=== PATIENT | female | born 1965 | race Caucasian/White ===

== ENCOUNTER 2018-10-26 09:17 | Outpatient (CLI) | payer OTHER | END 2018-10-26 09:18 | disposition home or self-care (01) | LOC: C.MAMMO 09:17 | DX: R92.2 Inconclusive mammogram (principal) ==

== ENCOUNTER 2018-11-01 09:27 | Emergency (ER) | payer OTHER ==
[2018-11-01 09:28] VITALS: BMI 25.7
[2018-11-01 09:34] VITALS: TEMP 97.9
--- NOTE | 2018-11-01 09:34 | C.PDOC ---
History Of Present Illness Melani Nelson is a 53 year old female w/ hx of Anxiety, HTN, Hypercholesterolemia, Hyperlipidemia who p/w hand pain and b/l knee pain s/p mechanical fall. She notes falling onto her R hand while walking to get to school today. She notes that she tripped on the curb at 0800 impacting her R hand. She notes FOOSH but denies any wrist pain, head impact, head pain, chest pain, abdominal pain, shoulder pain, or hip pain. She notes b/l knee pain after impacting her knees as well. No LOC or blood thinners usage. No nausea or vomiting. No GI or complaints or rashes. She denies any SI or HI, no anxiety or depression No other complaints Time Seen by Provider: 11/01/18 09:33 Chief Complaint (Nursing): Finger,Hand,&Wrist Past Medical History Vital Signs: Last Vital Signs Temp 97.9 F 11/01/18 09:28 Pulse 86 11/01/18 09:28 Resp 20 11/01/18 09:28 BP 167/96 H 11/01/18 09:28 Pulse Ox 99 11/01/18 09:28 - Medical History PMH: Anxiety, HTN, Hypercholesterolemia, Hyperlipidemia Denies: Colonic Polyps, Fractures, TIA Surgical History: Denies: Endoscopy Family History: States: Unknown Family Hx - Social History Hx Alcohol Use: No Hx Substance Use: No Review Of Systems Constitutional: Negative for: Fever, Weakness Eyes: Negative for: Pain, Vision Change ENT: Negative for: Ear Pain, Ear Discharge, Nose Pain, Nose Discharge, Nose Congestion, Mouth Pain, Mouth Swelling Cardiovascular: Negative for: Chest Pain, Palpitations, Orthopnea, Edema Respiratory: Negative for: Cough, Shortness of Breath Gastrointestinal: Negative for: Nausea, Vomiting, Abdominal Pain, Constipation Genitourinary: Negative for: Dysuria, Frequency Musculoskeletal: Positive for: Hand Pain (R), Leg Pain (b/l knees). Negative for: Neck Pain, Shoulder Pain, Back Pain Skin: Positive for: Bruising (over anterior b/l knees). Negative for: Rash, Lesions Neurological: Negative for: Weakness, Numbness, Incoordination, Confusion, Headache, Dizziness Psych: Negative for: Anxiety, Depression, Psychosis, Suicidal ideation, Withdrawal Physical Exam - Physical Exam Appears: Well, No Acute Distress Skin: Normal Color, Warm, Dry, Ecchymosis (to b/l knees anterior. ), Other (superficial abrasion to L knee, good hemostasis, no visible bone or tendon. Scabbed over without bleeding) Head: Atraumatic, Normacephalic, No Tenderness, No Swelling, No Abrasion, No Laceration Eye(s): bilateral: Normal Inspection, PERRL, EOMI Ear(s): Bilateral: Normal Nose: Normal Oral Mucosa: Moist Tongue: Normal Appearing Lips: Normal Appearing Teeth: Normal Dentition Gingiva: Normal Appearing Throat: Normal Neck: Normal Chest: Symmetrical Cardiovascular: Rhythm Regular, No Edema, No JVD Respiratory: Normal Breath Sounds, No Decreased Breath Sounds, No Accessory Muscle Use, No Rales, No Stridor, No Wheezing Gastrointestinal/Abdominal: Normal Exam Back: Normal Inspection Extremity: Normal ROM, Tenderness (R knee and L knee TTP over contusion and superficial abrasion site. ), No Pedal Edema, No Calf Tenderness, No Deformity, No Swelling, Other (negative thompsons test b/l. b/l LE and UE fully n/v intact. No snuffbox tenderness to b/l hands. ) Extremity: Bilateral: Hips Non-Tender, No Pedal Edema, Normal Color And Temperature, Normal ROM, Pelvis-Stable Pulses: Left Radial: Normal, Right Radial: Normal, Left Dorsalis Pedis: Normal, Right Dorsalis Pedis: Normal Neurological/Psych: Oriented x3, Normal Speech, Normal Cognition, Normal Cranial Nerves, No Cerebellar Signs, Normal Motor, Normal Sensation Gait: Steady Extremity: Right: No Drift, Left: No Drift ED Course And Treatment O2 Sat by Pulse Oximetry: 99 Medical Decision Making Medical Decision Making: Melani Nelson is a 53 year old female w/ hx of Anxiety, HTN, Hypercholesterolemia, Hyperlipidemia who p/w hand pain and b/l knee pain s/p mechanical fall. Fall w/ FOOSH of R hand, no wrist pain, fully n/v intact distally and proximally and without snuffbox tenderness or kanavel signs. Good strength. No finger abnls noted on exam. No finger pain. b/l knee pain s/p fall w/ superficial abrasion to L knee, no current bleed or erythema or decreased rom to knees. Good n/v status distally with good strength and normal gait. Pt does not know her last tetanus booster. No other pain or impact sites per pt, no blood thinners, headache, LOC or any other complaints. Normal neuro exam. Likely msk type pain. Pending imaging and labs. 1056 xrays unremarkable, no visible fx or abnl remains w/ out snuff box tenderness and remains n/v intact given wrist splint, per pt request, remains w/ out wrist pain. Disposition - Disposition Referrals: Jared Spears III, MD [Staff Provider] - [facility] [Outside] [facility] [Outside] [facility] [Outside] Disposition: HOME/ ROUTINE Disposition Time: 10:57 Condition: STABLE Additional Instructions: MELANI NELSON, thank you for letting us take care of you today. Your provider was Sylvain Barreto and you were treated for RT WRIST PAIN/FALL. The emergency medical care you received today was directed at your acute symptoms. If you were prescr ibed any medication, please fill it and take as directed. It may take several days for your symptoms to resolve. Return to the Emergency Department if your symptoms worsen, do not improve, or if you have any other problems. Please contact your doctor or call one of the physicians/clinics you have been referred to that are listed on the Patient Visit Information form that is included in your discharge packet. Bring any paperwork you were given at discharge with you along with any medications you are taking to your follow up visit. Our treatment cannot replace ongoing medical care by a primary care provider outside of the emergency department. Thank you for allowing the [facility] team to be part of your care today. If you had an X-Ray or CT scan: A Radiologist will review the ED reading if any change in treatment is needed we will contact you. If you had a blood, urine, or wound culture: It will take several days for the results, if any change in treatment is needed we will contact you. If you had an STI test: It will take 48 hours for the results. Please call after 1 week if you have not heard back. Instructions: Hand Sprain (ED), Preventing Falls, Common Wrist Injuries (DC), Knee Pain Forms: [facility] ([place]) - Clinical Impression Clinical Impression: Hand sprain, Fall, Knee pain, Wrist sprain
[2018-11-01] MEDS ORDERED: Tdap Vaccine 0.5 ml Vial (10-64 yrs) IM ONE ×2 (09:41→09:55)
[2018-11-01] MEDS ORDERED: Bacitracin 500 Units/gm Oint Foilpak UD ONE (09:50)
[2018-11-01] MEDS ORDERED: Bacitracin Ointment 30 GM TUBE TOP STA (09:52)
[2018-11-01 11:21] VITALS: BP 158/91; PULSE 84; RESP 18; O2SAT 98
--- NOTE | 2018-11-01 14:45 | RAD ---
PROCEDURE: Right Hand Radiographs. Three views. HISTORY: mech fall onto b/l knees COMPARISON: None available. FINDINGS: BONES: No acute displaced fracture. JOINTS: No dislocation. SOFT TISSUES: Unremarkable. No evidence of radiopaque foreign body. OTHER FINDINGS: None. IMPRESSION: No acute displaced fracture, dislocation, or significant joint effusion identified. If symptoms persist, or if there is continued clinical concern, x-ray follow-up in 7-10 days should be considered.
--- NOTE | 2018-11-01 15:16 | RAD ---
Date of service: 11/01/2018 PROCEDURE: Bilateral Knee Radiographs. Three views. HISTORY: mech fall onto R hand COMPARISON: None available. FINDINGS: BONES: Right Knee: No acute displaced fracture identified. Left Knee: No acute displaced fracture identified. JOINTS: Right Knee: No dislocation. No significant osteoarthritis. Left knee: No dislocation. No significant osteoarthritis. SOFT TISSUES: Right Knee: No evidence of radiopaque foreign body. Left Knee: No evidence of radiopaque foreign body. JOINT EFFUSION: Right Knee: No significant joint effusion identified. Left Knee: No significant joint effusion identified. OTHER FINDINGS: None. IMPRESSION: No acute displaced fracture, dislocation, or significant joint effusion identified. If symptoms persist or if there is continued clinical concern, x-ray follow-up in 7-10 days should be considered.
== END 2018-11-01 11:21 | disposition home or self-care (01) ==
LOC: C.ER 09:27
DX: S63.91XA Sprain of unspecified part of right wrist and hand, initial encounter (principal); S63.501A Unspecified sprain of right wrist, initial encounter; W01.0XXA Fall on same level from slipping, tripping and stumbling without subsequent striking against object, initial encounter; Y93.01 Activity, walking, marching and hiking; M25.562 Pain in left knee; M25.561 Pain in right knee

== ENCOUNTER 2018-11-24 13:41 | Outpatient (CLI) | payer OTHER | END 2018-11-24 13:42 | disposition home or self-care (01) | LOC: C.LAB 13:41 | DX: C50.911 Malignant neoplasm of unspecified site of right female breast (principal) ==